=== PATIENT | female | born 1945 | race Caucasian/White ===

== ENCOUNTER 2018-08-05 10:55 | Outpatient (RCR) | payer MEDICARE, OTHER, SELFPAY ==
--- NOTE | 2018-08-06 10:33 | PT.OIE ---
Current Diagnoses Full incontinence of feces (08/05/18) Provider Visit Care Team Role Provider Type Kehinde Hopkins MD Attending Provider Non-Staff Specialty: Colon & Rectal Surgery Address: [address] [place] [address], [address], [place], [address] Email: Physical Therapy Initial Evaluation PT-OP-A Visit Information Start: 08/06/18 09:58 Freq: Status: Active Protocol: Document 08/05/18 11:15 [facility] (Rec: 08/06/18 10:33 [facility] [email or web address]) Out-Patient Physical Therapy Visit Information Visit Information Visit Type Initial Evaluation Visit Start Time 11:15 Visit Stop Time 12:00 Total Visit Minutes 45 Visit Number 1 Evaluation Information Evaluation Date 08/05/18 PT-OP-B Current Condition Start: 08/06/18 09:58 Freq: Status: Active Protocol: Document 08/05/18 11:15 [facility] (Rec: 08/06/18 10:33 [facility] [email or web address]) Current Condition History of Current Condition Onset Date 4 years ago Current Complaints fecal incontinence limiting social and recreational activities History of Current Condition 73 year old female who began experiencing c/o fecal incontinence 4 years ago and is experiencing a worsening of her symptoms. She has a history of a J pouch 30 years ago. A little over 4 years ago Mariza was moving homes and was doing a great deal of lifting. SHe required a low back fusion following this move from L5-S2. She also needed a bladder lift repair which she had done this last spring. This is also when her symtoms of loss of control over her bowels began. She experiences frequent urges to defficate and reports having [id number] stools per day. Her stool is often very runny or pasty consistency. If she is very careful with her diet and takes her metamucil wafers she can help firm her stool some. She often tiems does not have a sense that she is leaking stool or that she is about to ahve a passage of stool. She also notes that she feels as if stool is getting caught when she has a bowl movement and she is not able to fully evacuate stool and has to push a great deal. Mariza reports feeling pelvic pressure and heaviness that is present all day Past medical history includes 4 vaginal deliveries and 2 required an episotomy, partial hysterectomy in 1978, colectomy, hernia repair, shoulder replacement, lumbar fusion Prior Treatments and Tests sigmoidscope in January revealed normal mucosa Treatment Goals Patient/Caregiver Goals The patients goals include reducing or eliminating fecal incontinence enabling her to enjoy group activities and walking without using pads Current Functional Impairments (Reported) Functional Limitations- Recreation/ walking for exercise is Hobbies limited due to fecal leakage with walking, group activities are difficult due to having to use the bathroom multiple times PT-OP-C Subjective Start: 08/06/18 09:58 Freq: Status: Active Protocol: Document 08/05/18 11:15 [facility] (Rec: 08/06/18 10:33 [facility] [email or web address]) Patient Questionnaires Pelvic Pain and Urgency/Frequency Patient Symptom Scale Pelvic Pain Score 18 PT-OP-I Pelvic Floor Start: 08/06/18 09:58 Freq: Status: Active Protocol: Document 08/05/18 11:15 [facility] (Rec: 08/06/18 10:33 [facility] [email or web address]) Pelvic Floor Assessment Urine Pelvic Floor Surgery Yes Bowel Bowel Surgery Yes Bowel Symptoms Fecal Leakage Other Bowel Symptoms frequent bowel movements 12-20 stools per day with loose or pasty stool, wears pads daily for fecal leakage and reports not being able to feel when she is leaking or when she needs to deficate Bowel Movement Frequency 12-20 per day Pelvic Clock Pelvic Clock 12-3 Atrophy Pelvic Clock 3-6 Atrophy Pelvic Clock 6-9 Atrophy Pelvic Clock 9-12 Atrophy Inter-Rectal Assessment weakness of the coccygeus and rectal sphincter with internal rectal assessment, decreased tone of the anus SEMG (uV) Holding Fair Stability of Hold Fair SEMG Stability of Rest Good Contraction Ability Manual Muscle Testing Left 2 Manual Muscle Testing Right 3 Manual Muscle Testing Anterior 3 Manual Muscle Testing Posterior 3 PT-OP-Q Treatments Start: 08/06/18 09:58 Freq: Status: Active Protocol: Document 08/05/18 11:15 [facility] (Rec: 08/06/18 10:33 [facility] [email or web address]) Neuro Re-Education Treatment Other Activities 1 Details Neuro muscular education pelvic floor facilitation with vaginal electrode Comments began with 10 second hold time and 10 second relaxation for home Self-Care/Home Management Treatment Activities Self-Care/Home Management Activities pt to try use of squatty potty to help with angle of the bowel for deffication PT-OP-T Assessment and Plan Start: 08/06/18 09:58 Freq: Status: Active Protocol: Document 08/05/18 11:15 [facility] (Rec: 08/06/18 10:33 [facility] [email or web address]) Physical Therapy Assessment Rehab Potential Rehabilitation Potential Good Evaluation Complexity Number of Personal Factors/Comorbidities 0 Number of Body Systems Impaired 1-2 Clinical Presentation at Evaluation Stable Impairments Impairments Activity Tolerance Functional Activities Soft Tissue Mobility Strength Tone Goals Four Impairment Fecal leakage with walking Senior Hydrogeologist Goal (LTG) With strengthening and education Mariza is able to return to her walking routine without fecal leakage during her walk LTG Duration 8 weeks + Three Impairment Decreased endurance of the pelvic floor Senior Hydrogeologist Goal (LTG) Improve endurance of the pelvic floor for improved support of the postural slow twitch muscle fibers supporting the rectum LTG Duration 8 weeks Two Impairment decreased tone of the rectal sphincter Short Term Goal (STG) Mariza is educated on facilitation of the rectal sphincter with pelvic floor contractions, NMES will be used to help improved sphincter control STG Duration 6 weeks One Impairment pelvic floor weakness and fecal incontinence Senior Hydrogeologist Goal (LTG) Improve strength of the pelvic floor for improved support of the rectum to improve control of the bowels and reduce leakage LTG Duration 8 Assessment Summary Assessment Mariza presents to physical therapy today with progressing symptoms of fecal incontinence. She has had a j pouch for 30 years and has not had any problems with fecal incontinence until the past 4 years. Mariza notes that 4 years ago she made a big move and was doing a great deal of lifting and movign furniture and moving boxes. She reports it was after this time that she began noticing symtoms of leakage and increased Low back pain. She has since had a low back fusion from L5-S2 and a bladder lift repair. With examination today she is able to facilitate all parts of the levator ani but is weak and lacks endurance. The resting tone of the anus is weak and there is skin irritation present. Mariza may be a good candidate for NMES with a rectal sensor to help improve both sensation and strength of the rectal sphincter and posterior wall of the pelvic floor. EMG biofeedback will also be used to help improve strength and endurance of the pelvic floor. Physical Therapy Plan Frequency and Duration Frequency of Treatment 1x/Week Duration of Treatment 8 weeks Plan of Care Start Date 08/05/18 Plan of Care End Date 09/30/18 Therapeutic Interventions Therapeutic Interventions Home Exercise Program Manual Therapy Neuromuscular Re-education Patient/Caregiver Education Self-Care/Home Management Soft Tissue Mobilization Therapeutic Exercises Modalities Biofeedback Electric Stimulation Other Therapeutic Interventions Mariza may benefit from a home rental of NMES Next Visit Focus/Plan Next Note Type Treatment Note Next Visit Plan Begin NMES with a rectal sensor next visit
== END 2018-11-19 14:43 ==
LOC: PHYS 10:55
PROVIDERS: Visit Provider Colon & Rectal Surgery
DX: R15.9 Full incontinence of feces (principal)
CPT/HCPCS: 97112; 97161

== ENCOUNTER → 2019-12-25 15:56 | Outpatient (CLI) | payer MEDICARE, OTHER, SELFPAY | PROVIDERS: Visit Provider Physician Assistant | DX: N30.01 Acute cystitis with hematuria (principal) | CPT/HCPCS: 87077; 87086; 87186 ==

== ENCOUNTER 2023-03-19 10:04 | Emergency (ER) | payer MEDICARE, OTHER, SELFPAY ==
[2023-03-19 10:08] VITALS: BP 141/75; PULSE 98; RESP 14; TEMP 36.2; O2SAT 96; BMI 27.4
--- NOTE | 2023-03-19 18:39 | ED.BACK ---
HPI - Back Pain/Injury <Herrera Avelar PA-C - Last Filed: 03/19/23 18:43> General Chief Complaint: Back Pain/Injury Stated Complaint: back issues a couple of weeks Time Seen by Provider: 03/19/23 10:21 Source: patient History of Present Illness HPI Narrative: 78-year-old female presents to the ED with several days of lower back pain. Patient denies specific trauma. Patient denies saddle paresthesias, urinary incontinence, urinary hesitancy, bowel incontinence. Related Data Previous Rx's Medication Instructions Recorded cyclobenzaprine 10 mg tablet 10 mg PO TID PRN muscle spasm 15 03/19/23 days #45 tabs Allergies Allergy/AdvReac Type Severity Reaction Status Date / Time morphine Allergy Verified 03/19/23 10:08 Sulfa (Sulfonamide Allergy Verified 03/19/23 10:08 Antibiotics) Review of Systems <Herrera Avelar PA-C - Last Filed: 03/19/23 18:43> Review of Systems ROS Unobtainable: All systems reviewed & are unremarkable except as noted in HPI and below Constitutional Constitutional: Denies chills, Denies fatigue, Denies fever(s), Denies frequent falls, Denies lethargy and Denies weakness Eyes Eyes: Denies change in vision, Denies eye discharge, Denies irritation and Denies loss of vision ENT Ears, Nose, Mouth, and Throat: Denies change in voice, Denies dizziness, Denies neck pain, Denies sore throat and Denies throat swelling Cardiovascular Cardiovascular: Denies chest pain, Denies irregular heart rhythm, Denies lightheadedness, Denies palpitations, Denies dyspnea, Denies dyspnea on exertion and Denies orthopnea Respiratory Respiratory: Denies cough, Denies dyspnea, Denies dyspnea on exertion and Denies wheezing Gastrointestinal Gastrointestinal: Denies abdominal pain, Denies change in bowel habits, Denies diarrhea, Denies nausea and Denies vomiting Genitourinary Genitourinary: Denies hematuria, Denies flank pain, Denies urinary incontinence and Denies urinary urgency Musculoskeletal Musculoskeletal: Reports back pain, Denies muscle weakness, Denies neck pain, Denies numbness and Denies tingling Integumentary/Breasts Skin/Breast: Denies pruritus, Denies erythema, Denies rash and Denies wounds Neurologic Neurologic: Denies behavioral changes, Denies confusion, Denies dizziness, Denies frequent falls, Denies loss of vision, Denies numbness, Denies tingling and Denies weakness Psychiatric Psychiatric: Denies anxiety, Denies behavioral changes, Denies confusion, Denies depression, Denies homicidal ideation and Denies suicidal ideation Endocrine Endocrine: Denies fatigue, Denies flushing and Denies palpitations Hematologic/Lymphatic Hematologic/Lymphatic: Denies easy bruising Allergic/Immunologic Allergic/Immunologic: Denies urticaria, Denies throat swelling and Denies wheezing Patient History <Herrera Avelar PA-C - Last Filed: 03/19/23 18:43> Social History Smoking Status: Never smoker Smoking Status: Never smoker alcohol intake frequency: holidays/special occasions only Substance Use Type: does not use Exam <Herrera Avlear PA-C - Last Filed: 03/19/23 18:43> Narrative Exam Narrative: Const General:?cooperative, healthy appearing and comfortable [facility] Head:?normal to inspection Ears:?hearing grossly normal bilaterally Nose:?external nose normal Face and sinus:?normal facial exam and sinuses nontender Mouth:?oral mucosae normal Throat:?posterior oropharynx normal Eyes General:?appearance normal, both eyes and all related structures Neck Neck:?normal visual inspection and no lymphadenopathy noted Resp Effort & Inspection:?normal respiratory effort Auscultation:?clear to auscultation bilaterally Cardio Rate:?regular rate Rhythm:?regular rhythm Musculoskeletal No midline tenderness to palpation, no paraspinal tenderness to palpation. Full range of motion. Strength and sensation intact. Patient is neurovascularly intact Neuro General:?patient alert, patient awake and patient oriented x3 Initial Vital Signs Initial Vital Signs: Vital Signs Temperature 97.2 F L 03/19/23 10:08 Pulse Rate 98 H 03/19/23 10:08 Respiratory Rate 14 03/19/23 10:08 Blood Pressure 141/75 H 03/19/23 10:08 Pulse Oximetry 96 03/19/23 10:08 Oxygen Delivery Method Room Air 03/19/23 10:08 <Perez Beverly MD - Last Filed: 03/25/23 14:23> Initial Vital Signs Initial Vital Signs: Vital Signs Temperature 97.2 F L 03/19/23 10:08 Pulse Rate 98 H 03/19/23 10:08 Respiratory Rate 14 03/19/23 10:08 Blood Pressure 141/75 H 03/19/23 10:08 Pulse Oximetry 96 03/19/23 10:08 Oxygen Delivery Method Room Air 03/19/23 10:08 MDM - Back Pain/Injury <Herrera Avelar PA-C - Last Filed: 03/19/23 18:43> Lab Data Labs: Urine Dip Bedside Urine Glucose Negative Bedside Urine Bilirubin - Negative Bedside Urine Ketone - Negative Urine Specific [place] 1.020 Bedside Urine Occult Blood - Negative Bedside Urine pH 6.0 Bedside Urine Protein - Negative Bedside Urine Urobilinogen - Negative Bedside Urine Nitrite - Negative Bedside Urine Leukocytes - Negative Esterase MDM Narrative Medical decision making narrative: 78-year-old female presents to the ED with several days of lower back pain. Patient's history and physical exam most consistent musculoskeletal sprain/strain. Supportive care discussed. Recommend follow-up with PCP as soon as possible. ED return precautions discussed with patient. Patient verbalized understanding. Medical records reviewed: Yes <Perez Beverly MD - Last Filed: 03/25/23 14:23> Lab Data Labs: Urine Dip Bedside Urine Glucose Negative Bedside Urine Bilirubin - Negative Bedside Urine Ketone - Negative Urine Specific [place] 1.020 Bedside Urine Occult Blood - Negative Bedside Urine pH 6.0 Bedside Urine Protein - Negative Bedside Urine Urobilinogen - Negative Bedside Urine Nitrite - Negative Bedside Urine Leukocytes - Negative Esterase Discharge Plan Departure Patient Disposition: Home Clinical Impression: Acute back pain Instructions: DI for Back Strain or Sprain Activity Restrictions/Additional Instructions: You were evaluated in the ED today for lower back pain. Your symptoms are likely due to a musculoskeletal sprain/strain. You may take 800 mg of ibuprofen 3 times a day with food, apply lidocaine patches, apply heat packs, take Flexeril which is a muscle relaxant. Please follow-up with your primary care physician as soon as possible so you may get a referral to physical therapy. Return to the ED if you experience any numbness, tingling, weakness. Prescriptions: New cyclobenzaprine 10 mg tablet 10 mg PO TID PRN (Reason: muscle spasm) 15 Days Qty: 45 0RF Referrals: Miscellaneous,MD Jessee [Primary Care Provider] - Stand Alone Forms: Patient Portal/API <Perez Beverly MD - Last Filed: 03/25/23 14:23> Cosign ED Attending Cosignature Attestation: I was immediately available in the department for consultation. ?This documentation has been reviewed and I agree with assessment and plan. Supervised by Perez Beverly MD
== END 2023-03-19 10:39 | disposition home or self-care (01) ==
PROVIDERS: Emergency Provider Student in an Organized Health Care Education/Training Program
DX: M54.50 Low back pain, unspecified (principal)
CPT/HCPCS: 81003; 99281; 99282

== ENCOUNTER 2023-04-20 10:06 | Emergency (ER) | payer MEDICARE, OTHER, SELFPAY ==
[2023-04-20 10:10] VITALS: BP 109/65; PULSE 88; RESP 18; TEMP 36.7; O2SAT 98; BMI 27.3
--- NOTE | 2023-04-20 10:28 | ED_ITS ---
HPI - Back Pain/Injury <Yael Benjamin PA-C - Last Filed: 04/20/23 13:28> General Chief Complaint: Back Pain/Injury Stated Complaint: nausea, back pain Time Seen by Provider: 04/20/23 10:11 Source: patient History of Present Illness HPI Narrative: A 78-year-old woman with a history of chronic back pain, L5-S1 surgery, fibromyalgia, kidney stone, anxiety, depression, muscle spasms, chronic fibromyalgia pain who presents with concern for severe very low back pain that is bilateral that has been present since last night, it is associated with some numbness radiating into her buttocks and into her thighs bilaterally which is chronic for her, also associated with some mild nausea which she mostly felt last night. Patient states that her pain is in the same location where she normally has back pain however she says it is more intense than she has ever experienced. She describes it as a constant sharp pain that does not seem to be worse or better with movement or change of position. She does not remember any inciting incident that may have triggered it although she does note she was in the car sitting for about 2 hours prior to the pain beginning. Patient states that she has been getting steroid shots from her orthopedist Dr. Wakefield, she is next scheduled to have 1 of these May 10. She states she is been trying muscle relaxers, her 10s unit, as well as hydrocodone which she has for her fibromyalgia and none of these have been effective to treat this pain. She denies any change in bowel or bladder habits, including dysuria urgency frequency, diarrhea, also denies flank pain abdominal pain vomiting, saddle par esthesias, chest pain, shortness of breath, new one sided weakness or any other symptoms. Patient states that she does not actually have an allergy to morphine, she states they tried it after her surgery and was simply ineffective for her it made her feel nauseous but did not treat her pain. She states she has taken Dilaudid without a problem. Last dose of hydrocodone was 8:00 a.m. this morning. Related Data Previous Rx's Medication Instructions Recorded baclofen 10 mg tablet 10 mg PO TID #30 tabs 04/20/23 prednisone 10 mg tablets in a dose 10 mg PO DAILY #21 ea 04/20/23 pack Allergies Allergy/AdvReac Type Severity Reaction Status Date / Time morphine Allergy Verified 04/20/23 10:14 Sulfa (Sulfonamide Allergy Verified 04/20/23 10:14 Antibiotics) Review of Systems <Yael Benjamin PA-C - Last Filed: 04/20/23 13:28> Review of Systems Narrative: See HPI Patient History <Yael Benjamin PA-C - Last Filed: 04/20/23 13:28> Social History Smoking Status: Never smoker Smoking Status: Never smoker alcohol intake frequency: holidays/special occasions only Substance Use Type: does not use Exam <Yael Benjamin PA-C - Last Filed: 04/20/23 13:28> Narrative Exam Narrative: GENERAL: 78 year old patient appears stated age. Well-developed patient, in mild distress, patient most comfortable standing slightly hunched. HEAD: Atraumatic. Normocephalic. EYES: Pupils equal round and reactive. Extraocular motions intact. No scleral icterus. No injection or drainage. ENT: Nose without bleeding, purulent drainage. Airway patent. NECK: Trachea midline. Non tender CARDIOVASCULAR: Regular rate and rhythm without murmurs, gallops, or rubs. RESPIRATORY: Clear to auscultation. Breath sounds equal bilaterally. No wheezes, rales, or rhonchi. GASTROINTESTINAL: Abdomen soft, non-tender, nondistended, midline surgical scar, no pulsating mass. EXTREMITIES: No edema or joint tenderness, strong equal bilateral dorsalis pedis and posterior tibialis pulses, strong equal bilateral radial pulses strength in lower extremities is 4/5 bilaterally with flexion-extension of the hip knee and ankle. BACK: mild bilateral sacroiliac tenderness without deformity or crepitance. midline Lumbar-sacral surgical scar No flank/CVA tenderness. NEURO: AOx3. Ambulates without difficulty, slightly slowly SKIN: No rash or erythema of visible areas Initial Vital Signs Initial Vital Signs: Vital Signs Temperature 98.0 F 04/20/23 10:10 Pulse Rate 88 04/20/23 10:10 Respiratory Rate 18 04/20/23 10:10 Blood Pressure 109/65 04/20/23 10:10 Pulse Oximetry 98 04/20/23 10:10 Oxygen Delivery Method Room Air 04/20/23 10:10 <Joey Culp DO - Last Filed: 04/20/23 13:48> Initial Vital Signs Initial Vital Signs: Vital Signs Temperature 98.0 F 04/20/23 10:10 Pulse Rate 88 04/20/23 10:10 Respiratory Rate 18 04/20/23 10:10 Blood Pressure 109/65 04/20/23 10:10 Pulse Oximetry 98 04/20/23 10:10 Oxygen Delivery Method Room Air 04/20/23 10:10 Course <Yael Benjamin PA-C - Last Filed: 04/20/23 13:28> Course Course Narrative: Did review pt chart and hx and discuss pt with Dr. Culp, attending MD. Feels it is reasonable to treat her pain acutely with IM dilaudid, also ODT zofran ordered. As there is no new injury and there is known history pain is in the same location as her historic chronic pain imaging is not obtained today. 1030 Orders Ordered: ED Orders 04/20/23 10:29 Urinalysis and Microscopic Stat Discontinued Medications Hydromorphone HCl (Hydromorphone 1 Mg Inj) 1 mg IM NOW ONE Stop: 04/20/23 10:30 Last Admin: 04/20/23 10:36 Dose: 1 mg Documented By: AT Ondansetron HCl (Ondansetron 4 Mg Odt) 4 mg SL NOW ONE Stop: 04/20/23 10:30 Last Admin: 04/20/23 10:36 Dose: 4 mg Documented By: AT Prednisone (Prednisone 20 Mg Tablet) 40 mg PO NOW ONE Stop: 04/20/23 11:32 Vital Signs Vital signs: Vital Signs - 8 hr 04/20/23 10:10 04/20/23 11:23 04/20/23 11:30 Temperature 98.0 F Pulse Rate 88 85 Respiratory Rate 18 14 Blood Pressure 109/65 131/66 129/60 Pulse Oximetry 98 93 Oxygen Delivery Method Room Air 04/20/23 11:30 Temperature Pulse Rate 89 Respiratory Rate Blood Pressure Pulse Oximetry 95 Oxygen Delivery Method <Joey Culp DO - Last Filed: 04/20/23 13:48> Orders Ordered: ED Orders 04/20/23 10:29 Urinalysis and Microscopic Stat Discontinued Medications Hydromorphone HCl (Hydromorphone 1 Mg Inj) 1 mg IM NOW ONE Stop: 04/20/23 10:30 Last Admin: 04/20/23 10:36 Dose: 1 mg Documented By: AT Ondansetron HCl (Ondansetron 4 Mg Odt) 4 mg SL NOW ONE Stop: 04/20/23 10:30 Last Admin: 04/20/23 10:36 Dose: 4 mg Documented By: AT Prednisone (Prednisone 20 Mg Tablet) 40 mg PO NOW ONE Stop: 04/20/23 11:32 Vital Signs Vital signs: Vital Signs - 8 hr 04/20/23 10:10 04/20/23 11:23 04/20/23 11:30 Temperature 98.0 F Pulse Rate 88 85 Respiratory Rate 18 14 Blood Pressure 109/65 131/66 129/60 Pulse Oximetry 98 93 Oxygen Delivery Method Room Air 04/20/23 11:30 Temperature Pulse Rate 89 Respiratory Rate Blood Pressure Pulse Oximetry 95 Oxygen Delivery Method MDM - Back Pain/Injury <Yael Benjamin PA-C - Last Filed: 04/20/23 13:28> Medical Records Attestation: I reviewed the patient's medical records. Lab Data Attestation: I reviewed the patient's lab results. Labs: Lab Results 04/20/23 Range/Units 10:29 Urine Color Yellow Urine Appearance Clear Urine pH 5.5 (4.5-8.0) Ur Specific [place] 1.025 (1.000-1.035) Urine Protein Trace H (Negative) Urine Glucose (UA) Negative (Negative) g/dL Urine Ketones Negative (NEGATIVE) Urine Occult Blood Negative (Negative) Urine Nitrate Negative (Negative) Urine Bilirubin Negative (NEGATIVE) Urine Urobilinogen 0.2 (0.2) E.U./dL Ur Leukocyte Esterase Negative (NEGATIVE) Urine RBC None seen (0-5/HPF) Urine WBC None seen (0-5/HPF) Ur Squamous Epith Cells 1-5 /hpf (0-5/HPF) Urine Bacteria None seen (None) Hyaline Casts 1-5/lpf (None) Ur Culture Indicated? Cult not indicated Treatment and disposition Shared decision making:: Shared decision-making was used and determine patient's plan of care today in the emergency department and plan for outpatient follow- up. MDM Narrative Medical decision making narrative: 78-year-old woman with history of fibromyalgia, chronic pain medication use, chronic back pain and previous L 5 S1 surgery presents with concern for low back pain that has been severe that began last night feels in the same place and same type of pain as previous back pain episodes but more intense than usual. On exam today patient has no red flags, she is clearly quite uncomfortable, as she takes hydrocodone regularly for fibromyalgia she is given IM Dilaudid here with improvement of her symptoms, also Zofran SL. Her urine is unremarkable not suggestive of UTI, her exam is also not suggestive of kidney injury, she has no pulsating masses strong equal bilateral pulses, no chest pain or shortness of breath or other concerning symptoms suggesting vascular etiology for her symptoms, patient does have blood pressures on the lower side however she endorses that this is chronic for her her pressures are normally around 100 systolic at baseline at home. Patient had no inciting incident however I do suspect that this is an exacerbation of her chronic low back pain and spinal stenosis for which she is being seen by Orthopedics, she is due for a repeat steroid shot May 10. Imaging is not obtained today as patient has known stenosis and previous surgery and chronic pain at the site of her pain today, per she has had a recent MRI. Discussed options with the patient, she is planning to reach out to her orthopedic provider as soon as possible however it is holiday weekend and she will be unable to see him until Saturday. She has had oral steroid medication in the past with good results for her back symptoms. We will place the patient on prednisone for symptom relief and encouraged her to continue her regular home therapies for pain as well. Return precautions provided, follow-up plan discussed, all questions answered. <Joey Culp, DO - Last Filed: 04/20/23 13:48> Lab Data Labs: Lab Results 04/20/23 Range/Units 10:29 Urine Color Yellow Urine Appearance Clear Urine pH 5.5 (4.5-8.0) Ur Specific [place] 1.025 (1.000-1.035) Urine Protein Trace H (Negative) Urine Glucose (UA) Negative (Negative) g/dL Urine Ketones Negative (NEGATIVE) Urine Occult Blood Negative (Negative) Urine Nitrate Negative (Negative) Urine Bilirubin Negative (NEGATIVE) Urine Urobilinogen 0.2 (0.2) E.U./dL Ur Leukocyte Esterase Negative (NEGATIVE) Urine RBC None seen (0-5/HPF) Urine WBC None seen (0-5/HPF) Ur Squamous Epith Cells 1-5 /hpf (0-5/HPF) Urine Bacteria None seen (None) Hyaline Casts 1-5/lpf (None) Ur Culture Indicated? Cult not indicated Discharge Plan Departure Patient Disposition: Home Clinical Impression: Acute exacerbation of chronic low back pain, Acute low back pain with bilateral sciatica Instructions: DI for Low Back Pain Activity Restrictions/Additional Instructions: *You have been diagnosed with [acute exacerbation of chronic low back pain] *What to do: *Please continue to take your regular medications as directed. [X ] New medication prescriptions sent to your pharmacy: [Prednisone, Baclofen] [ ] New medication written as a paper prescription [ ] No new medications given *Please follow up with your primary care provider in 2-3 days, call for an appointment. Let them know you were seen in the Emergency Department and that we ask that you be seen in follow up. We will electronically transmit a record of today's note if your PCP is in our system. After discussion we agreed we will try a course of prednisone steroid medication for you as this has been helpful for your back pain in the past. Otherwise I recommend that you do your regular home treatments such as your 10s unit, trying heat and ice, I am also prescribing a different muscle relaxer for you please do not take this at the same time as your other muscle relaxer, but I think it may be more effective. Your urine today looked good have no evidence of a urinary tract infection. *If you do not have a primary care provider please contact the [facility] Resource line at [phone]. They will ask some questions about your medical history and help get you set up with a doctor in the community. *Return to Emergency Department if you should have any new, worsening or concerning symptoms, such as [fever greater than 101 F, shaking chills, worsening pain, persistent vomiting, numbness or tingling of your groin area, inability to pee or poop, new one-sided weakness or other bothersome symptoms] Prescriptions: New baclofen 10 mg tablet 10 mg PO TID Qty: 30 0RF prednisone 10 mg tablets,dose pack 10 mg PO DAILY Qty: 21 0RF Rx Instructions: Per package directions Referrals: Miscellaneous,Doctor, [Primary Care Provider] - Stand Alone Forms: Patient Portal/API <Joey Culp DO - Last Filed: 07/01/23 13:48> Cosign ED Attending Cosignature Attestation: Dr Culp Co-Sign Statement: I was available for consultation during this patient's emergency department visit. This chart is signed by myself for administrative purposes only. I did not have direct contact with this patient during this visit. They were seen independently by the APC.
[2023-04-20] MEDS: HYDROMORPHONE 1 MG INJ IM (10:36)
[2023-04-20] MEDS: ONDANSETRON 4 MG ODT SL (10:36)
[2023-04-20 10:40] LABS: Appearance Urine UA CLEAR; Bilirubin Urine UA NEGATIVE (NEGATIVE); Color Urine UA YELLOW; Glucose Urine UA NEGATIVE (Negative); Ketones Urine UA NEGATIVE (NEGATIVE); Leukocyte Esterase Urine UA NEGATIVE (NEGATIVE); Nitrite Urine UA NEGATIVE (Negative); Occult Blood Urine UA NEGATIVE (Negative); Protein Urine UA TRACE (Negative); Specific Gravity Urine UA 1.025 (1.000-1.035); Urobilinogen Urine UA 0.2 E.U./dL (0.2)
[2023-04-20 10:48] LABS: pH Urine UA 5.5 (4.5-8.0)
[2023-04-20 10:50] LABS: Bacteria Urine None Seen; RBC Urine None Seen (0-5/HPF); WBC Urine None Seen (0-5/HPF)
[2023-04-20 10:51] LABS: Culture Indicated Urine Cult Not Indicated; Hyaline Casts Urine 1-5/LPF; Squamous Epithelial Cell Urine 1-5 /HPF (0-5/HPF)
[2023-04-20 11:23] VITALS: BP 131/66; PULSE 85; RESP 14; O2SAT 93
[2023-04-20 11:30] VITALS: BP 129/60; PULSE 89; O2SAT 95
[2023-04-20] MEDS: predniSONE 20 MG TABLET 40 MG PO (11:53)
== END 2023-04-20 12:00 | disposition home or self-care (01) ==
PROVIDERS: Emergency Provider Student in an Organized Health Care Education/Training Program
DX: M54.42 Lumbago with sciatica, left side (principal); M54.41 Lumbago with sciatica, right side
CPT/HCPCS: 81001; 96372; 99283; J1170

== ENCOUNTER → 2023-10-19 13:58 | Outpatient (CLI) | payer MEDICARE, OTHER, SELFPAY | PROVIDERS: Visit Provider Student in an Organized Health Care Education/Training Program | DX: R30.0 Dysuria (principal) | CPT/HCPCS: 87077; 87086; 87186 ==

== ENCOUNTER 2024-08-08 10:43 | Emergency (ER) | payer MEDICARE, OTHER, SELFPAY ==
[2024-08-08] VITALS (7 sets, daily range): BP systolic 100–120; BP diastolic 51–60; PULSE 75–85; RESP 16–31; TEMP 36.3; O2SAT 90–97
--- NOTE | 2024-08-08 12:02 | EKG_ITS ---
[address] [address] Test Date: 2024-08-08 Pat Name: Shu Mireles Department: [facility] Room: Gender: Female [employer] Tender: [employer] : 1945 Requested By: Order Number: [id number] Reading MD: Everett Meeks Measurements Intervals [place] Rate: 75 P: 54 KS: 178 QRS: 264 QRSD: 138 T: 49 QT: 406 QTc: 453 Interpretive Statements Normal sinus rhythm Right bundle branch block Electronically Signed On 08-10-2024 15:50:36 PDT by Everett Meeks
[2024-08-08 12:07] LABS: Influenza A - CEPHEID Flu A NEGATIVE (NEGATIVE); Influenza B - CEPHEID Flu B NEGATIVE (NEGATIVE); Respiratory Syncytial Virus Negative (Negative)
[2024-08-08 12:07] LABS: Prothrombin Time 11.2 SECONDS (9.4-12.5)
[2024-08-08 12:11] LABS: COVID-19 CEPHEID 4-PLEX PCR Negative (Negative)
[2024-08-08 12:13] LABS: Add Manual Diff / Slide Review NO; Alanine Aminotransferase 82 IU/L (<35); Albumin 4.3 g/dL (3.5-5.0); Albumin Globulin Ratio 1.2 (1.0-2.8); Alkaline Phosphatase 123 U/L (38-126); Aspartate Aminotransferase 64 IU/L (14-36); Basophils Absolute Auto 0 /uL (0-100); Basophils Percent Auto 0.5 % (0-2); Bilirubin Total 0.5 mg/dL (0.2-1.3); Blood Urea Nitrogen 23 mg/dL (7-17); Calcium 9.7 mg/dL (8.4-10.2); Carbon Dioxide 18 mmol/L (22-32); Chloride 107 mmol/L (98-107); Eosinophils Absolute Auto 400 /uL (0-450); Eosinophils Percent Auto 4.5 % (2-4); Estimated Glomerular Filt Rate 48 mL/min (>60); Globulin 3.5 g/dL (1.7-4.1); Glucose 160 mg/dL (80-110); HEMOLYSIS 42 (0-50); Hematocrit 38.3 % (36-46); Lipase 97 U/L (23-300); Lymphocytes Absolute Auto 1400 /uL (1100-4500); Lymphocytes Percent Auto 15.9 % (25-40); Mean Corpuscular Hemoglobin 30.8 PG (26-34); Mean Corpuscular Volume 90.7 fL (80-100); Monocytes Absolute Auto 900 /uL (0-900); Monocytes Percent Auto 9.6 % (3-14); Neutrophils Absolute Auto 6200 /uL (1500-7000); Neutrophils Percent Auto 69.5 % (50-75); Platelet Count 279 X10^3/uL (150-400); Potassium 4.5 mmol/L (3.4-5.1); Red Blood Cell Count 4.22 X10^6/uL (4.0-5.2); Red Cell Distribution Width 12.7 % (11.6-14.8); Sodium 136 mmol/L (137-145); Total Protein 7.8 g/dL (6.3-8.2)
[2024-08-08 12:31] LABS: NT-proBNP (BNP-Adult 18+) 466 pg/mL (<450)
--- NOTE | 2024-08-08 12:38 | DI.RAD.S_ITS ---
PROCEDURE: XR CHEST 1V INDICATIONS: short of breath TECHNIQUE: One view of the chest was acquired. COMPARISON: None. FINDINGS: Surgical changes and devices: Right shoulder prosthesis, partially imaged. Bilateral perihilar calcified lymph nodes and left lower lobe calcified granuloma consistent with prior granulomatous disease. Left basilar atelectasis and or infiltrate present. Remainder of the lungs and pleural spaces are clear. IMPRESSION: Mild left basilar atelectasis and or infiltrate medially. Prior calcified granulomatous disease Approved by: Leo Reynolds M.D. on 08/08/2024 at 12:30
--- NOTE | 2024-08-08 13:09 | ED.WEAKNESS ---
HPI - Weakness General Chief complaint: Weakness Stated complaint: Weakness, Headaches, Leg pain Time Seen by Provider: 08/08/24 13:09 History of Present Illness HPI Narrative: Patient 79-year-old female his history of chronic back pain she gets injections her last injection was 3 months ago. She has had increasing weakness for the last 3 weeks. It has just not getting any better. She has been doing a lot of sitting. She sometimes has nausea she is decrease in appetite she continues to drink. He is having increasing weakness and pain in her legs which has been ongoing. She has some bowel incontinence which is not new for her. No fever or chills. She does appear to be short of breath. However she denies orthopnea. She does admit to shortness of breath with exertion. No chest pain. No fever or chills. She has no history of congestive heart failure typically. However has been reports that 1 time she had kidney stone was in the hospital for it after she received multiple L of fluid she then needed Lasix but has not had an issue since Related Data Home Medications Medication Instructions Recorded Confirmed alprazolam 0.25 mg tablet mg PO 10/19/23 10/19/23 hydrocodone 7.5 mg-acetaminophen tab PO 10/19/23 10/19/23 325 mg tablet metaxalone 400 mg tablet 800 mg PO TID 10/19/23 10/19/23 rosuvastatin 20 mg tablet 20 mg PO ONCE PM 10/19/23 10/19/23 sertraline 50 mg tablet 50 mg PO DAILY 10/19/23 10/19/23 Previous Rx's Medication Instructions Recorded albuterol sulfate 90 mcg/actuation 2 puff inhalation Q4-6H PRN 08/08/24 aerosol inhaler shortness of breath or wheezing #8.5 grams cefdinir 300 mg capsule 300 mg PO Q12H #10 caps 08/08/24 doxycycline hyclate 100 mg capsule 100 mg PO BID #10 caps 08/08/24 hydrocodone 5 mg-acetaminophen 325 1 tab PO Q6H PRN pain #15 tabs 08/08/24 mg tablet ondansetron 4 mg disintegrating 4 mg PO Q8H PRN nausea and 08/08/24 tablet vomiting #10 tabs tamsulosin 0.4 mg capsule (Flomax) 0.4 mg PO BEDTIME #14 caps 08/08/24 Allergies Allergy/AdvReac Type Severity Reaction Status Date / Time morphine Allergy Verified 08/08/24 11:03 Sulfa (Sulfonamide Allergy Verified 08/08/24 11:03 Antibiotics) Patient History Social History Smoking Status: Never smoker Smoking Status: Never smoker alcohol intake frequency: holidays/special occasions only Substance Use Type: does not use Exam Initial Vital Signs Initial Vital Signs: Vital Signs Temperature 97.3 F L 08/08/24 11:00 Pulse Rate 85 08/08/24 11:00 Respiratory Rate 17 08/08/24 11:00 Blood Pressure 117/56 L 08/08/24 11:00 Pulse Oximetry 94 08/08/24 11:00 Oxygen Delivery Method Room Air 08/08/24 11:00 GENERAL: Alert week 79-year-old female and in no acute distress. HEENT: Head atraumatic,EOMI, pupils reactive, face symmetric, moist mucous membranes CARDIOVASCULAR: Regular rate and rhythm without murmurs, rubs or gallops. RESPIRATORY: Tachypnea mild wheezing mild rales ABDOMEN: Soft, mild lower abdominal tenderness no guarding or rebound EXTREMITIES: Normal range of motion, no clubbing or edema. Neurovascularly intact NEUROLOGICAL: Alert and oriented x4.Normal gait and speech. Cranial nerves II through XII grossly intact. 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 Course Orders Ordered: ED Orders 08/08/24 11:00 Covid-19 + FLU A/B + RSV - PCR Stat 08/08/24 11:42 EKG-12 Lead Stat 08/08/24 11:48 Complete Blood Count AUTO DIFF Stat Comprehensive Metabolic Panel Stat Lipase Stat Prothrombin Time INR Stat 08/08/24 11:59 BNP [NT-proBNP (BNP-Adult 18+)] Stat 08/08/24 12:38 Chest [XR chest 1V] Stat 08/08/24 13:24 CT abdomen pelvis w con Stat 08/08/24 13:38 Lactate (Lactic Acid) Stat Procalcitonin Stat 08/08/24 16:17 Urine Microscopic Stat Discontinued Medications Albuterol/Ipratropium (Albuterol/Ipratropium 3 Ml Ampul) 3 ml INH NOW ONE Stop: 08/08/24 13:25 Last Admin: 08/08/24 13:50 Dose: 3 ml Documented By: ULISES Cefdinir (Cefdinir 300 Mg Capsule) 300 mg PO NOW ONE Stop: 08/08/24 15:37 Last Admin: 08/08/24 15:44 Dose: 300 mg Documented By: AYLA Doxycycline Hyclate (Doxycycline Hyclate 100 Mg Tablet) 100 mg PO NOW ONE Stop: 08/08/24 15:37 Last Admin: 08/08/24 15:44 Dose: 100 mg Documented By: AYLA Hydromorphone HCl (Hydromorphone 1 Mg Inj) 0.5 mg IV NOW ONE Stop: 08/08/24 13:25 Last Admin: 08/08/24 13:50 Dose: 0.5 mg Documented By: PASTOR Ondansetron HCl (Ondansetron 4 Mg/2 Ml Inj) 4 mg IV NOW PRN PRN Reason: Nausea And Vomiting Last Admin: 08/08/24 13:50 Dose: 4 mg Documented By: PASTOR Ondansetron HCl (Ondansetron 4 Mg Odt) 4 mg PO NOW PRN PRN Reason: Nausea And Vomiting Vital Signs Vital signs: Vital Signs - 8 hr 08/08/24 11:00 08/08/24 13:51 08/08/24 14:34 Temperature 97.3 F L Pulse Rate 85 75 80 Respiratory Rate 17 16 19 Blood Pressure 117/56 L 102/52 L Pulse Oximetry 94 97 92 Oxygen Delivery Method Room Air Room Air 08/08/24 14:35 08/08/24 14:35 08/08/24 15:00 Temperature Pulse Rate 83 80 Respiratory Rate 25 H 16 Blood Pressure 102/52 L Pulse Oximetry 90 L Oxygen Delivery Method 08/08/24 15:00 08/08/24 15:30 08/08/24 15:30 Temperature Pulse Rate 84 Respiratory Rate 31 H Blood Pressure 100/51 L 114/55 L Pulse Oximetry 91 Oxygen Delivery Method 08/08/24 16:00 08/08/24 16:00 Temperature Pulse Rate 77 Respiratory Rate 19 Blood Pressure 120/60 Pulse Oximetry 94 Oxygen Delivery Method MDM - Weakness Lab Data 08/08/24 11:48 10/19/24 11:48 Labs: Lab Results 08/08/24 08/08/24 08/08/24 Range/Units 11:00 11:48 11:59 WBC 9.0 (4.5-11.0) X10^3/uL RBC 4.22 (4.0-5.2) X10^6/uL Hgb 13.0 (12.0-16.0) g/dL Hct 38.3 (36-46) % MCV 90.7 (80-100) fL MCH 30.8 (26-34) PG MCHC 34.0 (30-36) % RDW 12.7 (11.6-14.8) % Plt Count 279 (150-400) X10^3/uL Neut % (Auto) 69.5 (50-75) % Lymph % (Auto) 15.9 L (25-40) % [place] % (Auto) 9.6 (3-14) % Eos % (Auto) 4.5 H (2-4) % Baso % (Auto) 0.5 (0-2) % Neut # (Auto) 6200 (5425-7202) /uL Lymph # (Auto) 1400 (2472-5589) /uL [place] # (Auto) 900 (0-900) /uL Eos # (Auto) 400 (0-450) /uL Baso # (Auto) 0 (0-100) /uL PT 11.2 (9.4-12.5) SECONDS INR 1.0 (0.9-1.3) Sodium 136 L (137-145) mmol/L Potassium 4.5 (3.4-5.1) mmol/L Chloride 107 (98-107) mmol/L Carbon Dioxide 18 L (22-32) mmol/L BUN 23 H (7-17) mg/dL Creatinine 1.15 H (0.52-1.04) mg/dL Estimated GFR 48 L (>60) mL/min BUN/Creatinine Ratio 20.0 (6-22) Glucose 160 H (80-110) mg/dL Lactate (0.7-2.1) mmol/L Calcium 9.7 (8.4-10.2) mg/dL Total Bilirubin 0.5 (0.2-1.3) mg/dL AST 64 H (14-36) IU/L ALT 82 H (<35) IU/L Alkaline Phosphatase 123 (38-126) U/L NT-Pro-B Natriuret Pep 466 H (<450) pg/mL Total Protein 7.8 (6.3-8.2) g/dL Albumin 4.3 (3.5-5.0) g/dL Globulin 3.5 (1.7-4.1) g/dL Albumin/Globulin Ratio 1.2 (1.0-2.8) Lipase 97 (23-300) U/L Procalcitonin (<0.5) ng/mL Urine RBC (0-5/HPF) Urine WBC (0-5/HPF) Ur Squamous Epith Cells (0-5/HPF) Urine Bacteria (None) Ur Culture Indicated? Vol Urine Centrifuged SARS-CoV-2 (PCR) Negative (Negative) Influenza A (RT-PCR) Flu a negative (NEGATIVE) Influenza B (RT-PCR) Flu b negative (NEGATIVE) RSV (PCR) Negative (Negative) 08/08/24 08/08/24 Range/Units 13:38 16:17 WBC (4.5-11.0) X10^3/uL RBC (4.0-5.2) X10^6/uL Hgb (12.0-16.0) g/dL Hct (36-46) % MCV (80-100) fL MCH (26-34) PG MCHC (30-36) % RDW (11.6-14.8) % Plt Count (150-400) X10^3/uL Neut % (Auto) (50-75) % Lymph % (Auto) (25-40) % [place] % (Auto) (3-14) % Eos % (Auto) (2-4) % Baso % (Auto) (0-2) % Neut # (Auto) (5810-2815) /uL Lymph # (Auto) (7139-6506) /uL [place] # (Auto) (0-900) /uL Eos # (Auto) (0-450) /uL Baso # (Auto) (0-100) /uL PT (9.4-12.5) SECONDS INR (0.9-1.3) Sodium (137-145) mmol/L Potassium (3.4-5.1) mmol/L Chloride (98-107) mmol/L Carbon Dioxide (22-32) mmol/L BUN (7-17) mg/dL Creatinine (0.52-1.04) mg/dL Estimated GFR (>60) mL/min BUN/Creatinine Ratio (6-22) Glucose (80-110) mg/dL Lactate 1.1 (0.7-2.1) mmol/L Calcium (8.4-10.2) mg/dL Total Bilirubin (0.2-1.3) mg/dL AST (14-36) IU/L ALT (<35) IU/L Alkaline Phosphatase (38-126) U/L NT-Pro-B Natriuret Pep (<450) pg/mL Total Protein (6.3-8.2) g/dL Albumin (3.5-5.0) g/dL Globulin (1.7-4.1) g/dL Albumin/Globulin Ratio (1.0-2.8) Lipase (23-300) U/L Procalcitonin 0.351 (<0.5) ng/mL Urine RBC None seen (0-5/HPF) Urine WBC None seen (0-5/HPF) Ur Squamous Epith Cells 1-5 /hpf (0-5/HPF) Urine Bacteria None seen (None) Ur Culture Indicated? Cult not indicated Vol Urine Centrifuged 10ml (spun) SARS-CoV-2 (PCR) (Negative) Influenza A (RT-PCR) (NEGATIVE) Influenza B (RT-PCR) (NEGATIVE) RSV (PCR) (Negative) Urine Dip Bedside Urine Glucose Negative Bedside Urine Bilirubin - Negative Bedside Urine Ketone - Negative Urine Specific [place] 1.010 Bedside Urine Occult Blood - Negative Bedside Urine pH 5.0 Bedside Urine Protein + 30 Bedside Urine Urobilinogen - Negative Bedside Urine Nitrite - Negative Bedside Urine Leukocytes - Negative Esterase Imaging Data Chest x-ray: Radiologist Impression: PROCEDURE: XR CHEST 1V INDICATIONS: short of breath TECHNIQUE: One view of the chest was acquired. COMPARISON: None. FINDINGS: Surgical changes and devices: Right shoulder prosthesis, partially imaged. Bilateral perihilar calcified lymph nodes and left lower lobe calcified granuloma consistent with prior granulomatous disease. Left basilar atelectasis and or infiltrate present. Remainder of the lungs and pleural spaces are clear. IMPRESSION: Mild left basilar atelectasis and or infiltrate medially. Prior calcified granulomatous disease Approved by: Leo Reynolds M.D. on 08/08/2024 at 12:30 CT scan - abdomen/pelvis: Radiologist Impression: PROCEDURE: CT ABDOMEN PELVIS W CON INDICATIONS: lower ab pain TECHNIQUE: After the administration of intravenous contrast, axial sections acquired from the lung bases to the pubic symphysis. Coronal and sagittal reformats were performed. For radiation dose reduction, the following was used: automated exposure control, adjustment of mA and/or kV according to patient size. COMPARISON: None. FINDINGS: Lower thorax: Right lower lobe pulmonary infiltrate. Heart size normal. Dense coronary artery vascular calcification. Small lymph nodes in the posterior mediastinum with internal calcification measure up to 1 cm short axis. Left hilar calcified nodes present as well. Prior granulomatous disease Liver: Normal in size and attenuation. No contour deformity present. Biliary system: No calcified cholelithiasis or pericholecystic inflammation. No intra or extrahepatic bile duct dilatation. Pancreas: Unremarkable without mass or inflammation evident. Spleen: Normal in size and density. Adrenals: Normal morphology and density. Reproductive system: Unremarkable as visualized. Urinary system: Mild hydronephrosis and hydroureter associated with a 10 x 4 mm calculus in the mid right ureter. Left renal atrophy Gastrointestinal system: Colectomy with ileal rectal anastomosis intact. Obstruction. Appendix: No findings to suggest acute appendicitis. Peritoneal spaces: No mesenteric or retroperitoneal adenopathy. Small gastrohepatic lymph nodes noted with calcification may reflect prior granulomatous disease. No free air. No free fluid. Vasculature: Atherosclerotic calcification in the abdominal aorta noted without evidence of aneurysm. 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 Abdominal wall: Bilateral inguinal hernias contain fat. Small loop of bowel present on the right. No obstruction. Musculoskeletal: L5 decompressive laminectomy with L4-5 and L5-S1 interbody fusion and posterior cole and screw instrumentation. IMPRESSION: Right lower lobe infiltrate consistent with pneumonia Mild right hydronephrosis and hydroureter associated with 10 x 4 mm calculus in mid right ureter. Lower lumbar spine fusion, instrumentation and decompression Approved by: Leo Reynolds M.D. on 08/08/2024 at 14:12 ECG Data Attestation: I personally reviewed and interpreted this ECG as follows: Prior ECG tracings: not available for review Interpretation: Sinus rhythm rate 75 NM interval 170 QRS 138 QTC 453 no ischemic changes no priors to compare MDM Narrative Medical decision making narrative: MDM CC: Weakness cough leg pain back pain Complicating co-morbidities: Chronic back pain at S1 prior back surgery Data collected from: , patient Medical records reviewed: Prior ED visits Differential considered: CHF as a pneumonia acute coronary syndrome abdominal obstruction nephrolithiasis diverticulitis appendicitis Exam documented above, pertinent findings include: Dyspnea, no hypoxia no pitting edema mild tenderness in lower abdomen appears to not feel well Lab Test results independently reviewed as above. Pertinent findings: WBC 9.0 hemoglobin 13 hematocrit 38.3 Sodium 136 potassium 4.5 chloride 107 carbon dioxide 18 BUN 23 creatinine 1.1 Bilirubin 0.5 AST 64 ALT 82, alk-phos 123 Troponin negative BNP 466 Independently reviewed EKG as above no ischemia sinus rhythm Imaging studies independently reviewed: Chest x-ray left lower lobe pneumonia CT shows a 10 x 4 mm mid distal ureter stone with hydro nephrosis Consultations: none Treatments: Dilaudid, albuterol cefdinir doxycycline Re-evaluations: After albuterol patient is breathing significantly better moving around the bed much easier Discussion: Patient 79-year-old female presents today with variety of complaints. She has some obvious shortness of breath which did improve with albuterol. Minimal elevation of BNP no concern for congestive heart failure she does not appear to be fluid overloaded. X-ray does confirm pneumonia. She has no leukocytosis elevated lactate or procalcitonin.no sign of severe sepsis CT does show a rather large right-sided kidney stone 10 x 4 mm. Patient reports that she has had these in the past not uncommon for her but does explain some of her abdominal for nausea and vomiting. She overall appears well nontoxic, breathing better. She has a urologist whom she follows with and would like to see him which is reasonable Putting her on antibiotics for pneumonia and UTI Discharge Plan Departure Patient Disposition: Home Clinical Impression: Right nephrolithiasis, Pneumonia Instructions: DI for Kidney Stones, DI for Pneumonia -- Adult Activity Restrictions/Additional Instructions: *You have been diagnosed with left-sided pneumonia right-sided kidney stone *What to do: You are feeling so poorly. Please stay hydrated as best you can, Pedialyte Gatorade, or electrolyte of your choice. You will need to follow-up with your urologist about your large kidney stone 10 x 4 mm. *Continue to take medications as directed Albuterol 1-2 puffs every 4 hours if needed for shortness of breath Cefdinir 300 mg twice a day for 5 days Doxycycline 100 mg twice a day for 5 days Flomax 0.4 mg night for kidney stone [place] 1 tablet every 6 hours if needed for severe pain take as perscribed Zofran 4 mg every 8 hours if needed for nausea or vomiting *Follow up with your primary care provider in 2-3 days or call [phone] Follow-up with your urologist, please call 1st thing Saturday morning *Return to ER if you should have increasing pain nausea vomiting fever not urinating dizziness lightheadedness passing out shortness of [or] any new, worsening or concerning symptoms Prescriptions: New doxycycline hyclate 100 mg capsule 100 mg PO BID Qty: 10 0RF hydrocodone-acetaminophen 5-325 mg tablet 1 tab PO Q6H PRN (Reason: pain) Qty: 15 0RF tamsulosin [Flomax] 0.4 mg capsule 0.4 mg PO BEDTIME Qty: 14 0RF albuterol sulfate 90 mcg/actuation HFA aerosol inhaler 2 puff INHALATION Q4-6H PRN (Reason: shortness of breath or wheezing) Qty: 8.5 0RF ondansetron 4 mg tablet,disintegrating 4 mg PO Q8H PRN (Reason: nausea and vomiting) Qty: 10 0RF cefdinir 300 mg capsule 300 mg PO Q12H Qty: 10 0RF No Action alprazolam 0.25 mg tablet PO hydrocodone-acetaminophen 7.5-325 mg tablet PO rosuvastatin 20 mg tablet 20 mg PO ONCE PM sertraline 50 mg tablet 50 mg PO DAILY metaxalone 400 mg tablet 800 mg PO TID Referrals: Miscellaneous,Doctor, MD [Primary Care Provider] - Stand Alone Forms: Patient Portal/API
--- NOTE | 2024-08-08 13:24 | DI.CT.S_ITS ---
PROCEDURE: CT ABDOMEN PELVIS W CON INDICATIONS: lower ab pain TECHNIQUE: After the administration of intravenous contrast, axial sections acquired from the lung bases to the pubic symphysis. Coronal and sagittal reformats were performed. For radiation dose reduction, the following was used: automated exposure control, adjustment of mA and/or kV according to patient size. COMPARISON: None. FINDINGS: Lower thorax: Right lower lobe pulmonary infiltrate. Heart size normal. Dense coronary artery vascular calcification. Small lymph nodes in the posterior mediastinum with internal calcification measure up to 1 cm short axis. Left hilar calcified nodes present as well. Prior granulomatous disease Liver: Normal in size and attenuation. No contour deformity present. Biliary system: No calcified cholelithiasis or pericholecystic inflammation. No intra or extrahepatic bile duct dilatation. Pancreas: Unremarkable without mass or inflammation evident. Spleen: Normal in size and density. Adrenals: Normal morphology and density. Reproductive system: Unremarkable as visualized. Urinary system: Mild hydronephrosis and hydroureter associated with a 10 x 4 mm calculus in the mid right ureter. Left renal atrophy Gastrointestinal system: Colectomy with ileal rectal anastomosis intact. Obstruction. Appendix: No findings to suggest acute appendicitis. Peritoneal spaces: No mesenteric or retroperitoneal adenopathy. Small gastrohepatic lymph nodes noted with calcification may reflect prior granulomatous disease. No free air. No free fluid. Vasculature: Atherosclerotic calcification in the abdominal aorta noted without evidence of aneurysm. 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 Abdominal wall: Bilateral inguinal hernias contain fat. Small loop of bowel present on the right. No obstruction. Musculoskeletal: L5 decompressive laminectomy with L4-5 and L5-S1 interbody fusion and posterior cole and screw instrumentation. IMPRESSION: Right lower lobe infiltrate consistent with pneumonia Mild right hydronephrosis and hydroureter associated with 10 x 4 mm calculus in mid right ureter. Lower lumbar spine fusion, instrumentation and decompression Approved by: Leo Reynolds M.D. on 08/08/2024 at 14:12
[2024-08-08 13:46] LABS: Lactate (Lactic Acid) 1.1 mmol/L (0.7-2.1)
[2024-08-08] MEDS: ALBUTEROL/IPRATROPIUM 3 ML AMPUL INH (13:50)
[2024-08-08] MEDS: HYDROMORPHONE 1 MG INJ 0.5 MG IV (13:50)
[2024-08-08] MEDS: ONDANSETRON 4 MG/2 ML INJ IV (13:50)
[2024-08-08 14:04] LABS: Procalcitonin 0.351 ng/mL (<0.5)
[2024-08-08] MEDS: CEFDINIR 300 MG CAPSULE PO (15:44)
[2024-08-08] MEDS: DOXYCYCLINE HYCLATE 100 MG TABLET PO (15:44)
[2024-08-08 16:29] LABS: Urine Volume 10mL (spun)
[2024-08-08 16:33] LABS: Bacteria Urine None Seen; Culture Indicated Urine Cult Not Indicated; RBC Urine None Seen (0-5/HPF); Squamous Epithelial Cell Urine 1-5 /HPF (0-5/HPF); WBC Urine None Seen (0-5/HPF)
== END 2024-08-08 16:29 | disposition home or self-care (01) ==
PROVIDERS: Emergency Provider Emergency Medicine
DX: N20.0 Calculus of kidney (principal); J18.9 Pneumonia, unspecified organism; R06.02 Shortness of breath; Z11.52 Encounter for screening for COVID-19
CPT/HCPCS: 0241U; 36415; 71045; 74177; 80053; 81003; 81015; 83605; 83690; 83880; 84145; 85025; 85610; 93005; 94640; 96374; 96375; 99284; J1171; J2405; Q9967